=== PATIENT | female | born 1980 | race Caucasian/White ===

== ENCOUNTER → 2021-07-14 12:18 | Outpatient (CLI) | payer BC, SELFPAY ==
--- NOTE | 2021-07-14 | DI.US.S_ITS ---
PROCEDURE: US PELVIC COMPLETE INDICATIONS: RIGHT PELVIC PAIN TECHNIQUE: Real-time scanning was performed of the pelvic organs, with image documentation. Additional endovaginal scanning was necessary due to incomplete visualization of the adnexal and endometrial structures by transabdominal scanning. COMPARISON: None. FINDINGS: Uterus: Uterus is anteverted and normal in size at 7.5 x 3.5 x 4.6 cm. The myometrium is homogeneous. The endometrium measures 4 mm combined thickness. The IUD is seen at its expected location. Ovaries: The right ovary measures 3.9 x 2.8 x 3.1 cm. Within the right ovary, there is a solid mass with minimal internal vascularity that measures 2 x 1.4 x 1.7 cm. There is also a simple appearing likely dominant follicle involving the right ovary that measures up to 1.5 cm. The left ovary is not seen. No adnexal masses are seen on either side. Other: No pathologic free abdominal or pelvic fluid. IMPRESSION: There is a 2 cm solid-appearing mass seen involving the right ovary, which may be related to a resolving hemorrhagic cyst. If it would be clinically appropriate, a followup pelvic ultrasound could be considered in 6 weeks to assure resolution/ improvement. We strive to produce accurate, complete, and clear reports of imaging services. To assist us in improving patient care, this report was composed using standard report templates and voice recognition software. Therefore, it may contain abnormal punctuation, insertions and/or omissions. Occasional wrong-word or sound-alike substitutions may occur. Though we review the report and make efforts to correct it, we do recommend that the report be read carefully in proper context to recognize any text inaccuracies. Dictated by: Menodza Ryan M.D. on 07/14/2021 at 12:38 Approved by: Mendoza Ryan M.D. on 07/14/2021 at 12:40
== END ==
PROVIDERS: PCP Nurse Practitioner Family; Referring Provider Nurse Practitioner Family; Visit Provider Nurse Practitioner Family
DX: R10.31 Right lower quadrant pain (principal); N83.9 Noninflammatory disorder of ovary, fallopian tube and broad ligament, unspecified
CPT/HCPCS: 76830; 76856

== ENCOUNTER → 2023-03-24 15:06 | Outpatient (CLI) | payer BC, SELFPAY ==
--- NOTE | 2023-03-24 | DI.US.S_ITS ---
PROCEDURE: US ABDOMEN COMPLETE INDICATIONS: Pelvic and perineal pain;Abdominal pain TECHNIQUE: Real-time scanning was performed of the abdominal and retroperitoneal organs, with image documentation. COMPARISON: [facility], US, US PELVIC COMPLETE, 03/24/2023, 15:32. FINDINGS: Liver: The liver demonstrates enlarged size. The liver demonstrates generalized moderately increased echogenicity. This decreases ultrasound sensitivity for detection of hepatic masses. Gallbladder: No findings of gallstones or sludge are seen. The gallbladder wall is not thickened, measuring 3 mm or less. No specific pericholecystic fluid is seen. The sonographic Mcclure sign is negative. Biliary ducts: Intrahepatic bile ducts are non-dilated. Extrahepatic bile duct caliber measures 4 mm. Normal is 6-7 mm or less in diameter, or 10 mm or less post-cholecystectomy. Pancreas: Visualized portions of the pancreas are sonographically normal. Spleen: Spleen is normal in size and homogeneous in echotexture. Kidneys: Kidneys are normal in size and echotexture. Right kidney measures 11.2 cm long; left kidney measures 11.8 cm long. No hydronephrosis or nephrolithiasis. No solid masses. Aorta: Visualized aorta is normal in caliber at less than 3 cm. Iliacs: Proximal common iliac arteries are normal in caliber at less than 2.5 cm. IVC: Intrahepatic inferior vena cava is patent. Miscellaneous: No free abdominal fluid. IMPRESSION: The gallbladder demonstrates a normal sonographic appearance. No biliary dilatation is seen. Enlarged, fatty infiltrated liver. Dictated by: Mendoza Ryan M.D. on 03/24/2023 at 17:10 Approved by: Mendoza Ryan M.D. on 03/24/2023 at 17:11
--- NOTE | 2023-03-24 | DI.US.S_ITS ---
PROCEDURE: US PELVIC COMPLETE INDICATIONS: PAIN TECHNIQUE: Real-time scanning was performed of the pelvic organs, with image documentation. Additional endovaginal scanning was necessary due to incomplete visualization of the adnexal and endometrial structures by transabdominal scanning. COMPARISON: [facility], US, US ABDOMEN COMPLETE, 03/24/2023, 15:21. [facility], US, US PELVIC COMPLETE, 07/14/2021, 12:46. FINDINGS: Uterus: Uterus is anteverted and normal in size at 7.8 x 3.8 x 5 cm. The myometrium is homogeneous. The endometrium measures 5 mm combined thickness. The IUD is seen at its expected location. Ovaries: The right ovary measures 3.8 x 3.6 x 4.7 cm, with a calculated ovarian volume of 33.3 cc. Two simple cysts can be seen involving the left ovary, with the largest measuring up to 1.5 cm. Within the right ovary, there is a solid appearing mass, with internal vascularity that measures up to 2.7 cm. Normal appearing arterial waveforms are confirmed to the left ovary. The left ovary is not seen. Other: No pathologic free abdominal or pelvic fluid. IMPRESSION: A 2.7 cm solid appearing mass with internal vascularity can be seen involving the right ovary. The clinical significance of this is uncertain. If it would be clinically appropriate, a followup pelvic ultrasound could be considered in 6 weeks to assure resolution/ improvement. Left ovary not seen. The IUD is seen at its expected location. We strive to produce accurate, complete, and clear reports of imaging services. To assist us in improving patient care, this report was composed using standard report templates and voice recognition software. Therefore, it may contain abnormal punctuation, insertions and/or omissions. Occasional wrong-word or sound-alike substitutions may occur. Though we review the report and make efforts to correct it, we do recommend that the report be read carefully in proper context to recognize any text inaccuracies. Dictated by: Mendoza Ryan M.D. on 03/24/2023 at 17:11 Approved by: Mendoza Ryan M.D. on 03/24/2023 at 17:13
== END ==
PROVIDERS: PCP Nurse Practitioner Family; Referring Provider Naturopath; Visit Provider Naturopath
DX: N83.9 Noninflammatory disorder of ovary, fallopian tube and broad ligament, unspecified (principal); K76.0 Fatty (change of) liver, not elsewhere classified; R10.2 Pelvic and perineal pain; R10.84 Generalized abdominal pain; Z97.5 Presence of (intrauterine) contraceptive device
CPT/HCPCS: 76700; 76830; 76856

== ENCOUNTER → 2023-06-13 12:27 | Outpatient (CLI) | payer BC, SELFPAY ==
--- NOTE | 2023-06-13 12:28 | DI.US.S_ITS ---
PROCEDURE: US PELVIC COMPLETE INDICATIONS: Right side ovarian cyst TECHNIQUE: Real-time scanning was performed of the pelvic organs, with image documentation. Additional endovaginal scanning was necessary due to incomplete visualization of the adnexal and endometrial structures by transabdominal scanning. COMPARISON: [facility], , US PELVIC COMPLETE, 03/24/2023, 15:32. FINDINGS: Uterus: Uterus is anteverted and normal in size at 8.6 x 6.1 x 4.1 cm. The myometrium is homogeneous. The endometrium measures 2 mm combined thickness. Intrauterine device appears in appropriate position. Trace fluid within the endometrium. Prominent vascularity is seen adjacent to the scar. Ovaries: The right ovary measures 3.8 x 3.1 x 3.2 cm, with a calculated ovarian volume of 19.7 cc. Cyst with internal echoes measuring 1.8 centimeters. Para ovarian cyst measuring 1.3 centimeters. No solid masses are seen. The left ovary measures 4.3 x 2.3 x 1.5 cm, with a calculated ovarian volume of 7.8 cc. Right ovary is only seen transabdominally secondary to positioning. Less than 12 follicles can be seen in each ovary. No adnexal masses are seen. Other: No pathologic free abdominal or pelvic fluid. IMPRESSION: 1. Previous solid lesion within the right ovary is not seen. 2. Right ovarian cyst with internal echoes measuring 1.8 centimeters. Right para ovarian cyst measuring 1.3 centimeters. We strive to produce accurate, complete, and clear reports of imaging services. To assist us in improving patient care, this report was composed using standard report templates and voice recognition software. Therefore, it may contain abnormal punctuation, insertions and/or omissions. Occasional wrong-word or sound-alike substitutions may occur. Though we review the report and make efforts to correct it, we do recommend that the report be read carefully in proper context to recognize any text inaccuracies. Dictated by: Keith Contreras M.D. on 06/13/2023 at 14:55 Approved by: Keith Contreras M.D. on 06/13/2023 at 15:01
== END ==
PROVIDERS: PCP Nurse Practitioner Family; Referring Provider Obstetrics & Gynecology; Visit Provider Obstetrics & Gynecology
DX: N83.291 Other ovarian cyst, right side (principal); Z97.5 Presence of (intrauterine) contraceptive device
CPT/HCPCS: 76830; 76856